=== PATIENT | male | born 1975 | race Caucasian/White ===

== ENCOUNTER 2018-05-27 13:10 | Emergency (ER) | payer MEDICARE, OTHER ==
[~2018-05-27] VITALS: Ht 167.6 cm; Wt 86.2 kg
[2018-05-27] MEDS ORDERED: LEVO125T8 PO (13:20)
--- NOTE | 2018-05-27 13:50 | NUR ---
PATIENT WAS MSE BY DR WARD IN ROOM 04B.
--- NOTE | 2018-05-27 14:25 | NUR ---
PATIENT IN BED NO S/S ANY DISTRESS. A & O X4
--- NOTE | 2018-05-27 15:00 | NUR ---
Patient eloped from facility. ER physician notified.
== END 2018-05-27 15:00 | disposition left against medical advice (07) ==
LOC: ER 13:10
DX: S13.4XXA Sprain of ligaments of cervical spine, initial encounter (principal); E03.9 Hypothyroidism, unspecified; Z79.899 Other long term (current) drug therapy; V49.9XXA Car occupant (driver) (passenger) injured in unspecified traffic accident, initial encounter; Y93.89 Activity, other specified; Y92.89 Other specified places as the place of occurrence of the external cause; Y99.8 Other external cause status
CPT/HCPCS: 72125; A4663